=== PATIENT | male | born 1965 | race American Indian/Alaskan Native ===

== ENCOUNTER 2019-09-13 15:03 | Emergency (ER) | payer SELFPAY ==
[2019-09-13 15:43] VITALS: BP 139/83
[2019-09-13] MEDS ORDERED: IBUPROFEN 800 MG TAB PO ONE (16:14)
--- NOTE | 2019-09-13 16:45 | XRay Report ---
LEFT KNEE 4 VIEWS INDICATION / CLINICAL INFORMATION: Left knee pain and swelling for 3 days without known injury. COMPARISON: None available. FINDINGS: BONES / JOINT(S): There is a moderate suprapatellar joint effusion. There are mild degenerative manzo es involving the patellofemoral joint. There is no evidence of fracture, dislocation or destructive l esion. SOFT TISSUES: No significant abnormality. ADDITIONAL FINDINGS: None. IMPRESSION: Moderate suprapatellar joint effusion. Mild osteoarthritis. Signer Name: Davide Rankin MD Signed: 09/13/2019 4:41 PM Workstation Name: [id number]
--- NOTE | 2019-09-13 17:17 | Emergency Department Report ---
ED Fever HPI - General Chief Complaint: Extremity Injury, Lower Stated Complaint: LFT KNEE SWELLING/PAIN Time Seen by Provider: 09/13/19 16:08 - History of Present Illness Initial Comments: Patient is a 54-year-old F [place] male with a past medical history of congestive heart failure and hypertension who is presenting with left knee pain. Pain is been present for approximately a week. He denies any injury. He does note some swelling. Pain is mostly in the lateral left knee with some radiation of the pain down through the calf. Patient denies fevers chills. States is a tight achy sensation is 5 out of 10 in severity. ED Review of Systems ROS: Stated complaint: LFT KNEE SWELLING/PAIN Other details as noted in HPI Comment: All other systems reviewed and negative ED Past Medical Hx - Past Medical History Previous Medical History?: Yes Hx Hypertension: Yes Hx Congestive Heart Failure: Yes - Surgical History Past Surgical History?: No - Social History Smoking Status: Never Smoker Substance Use Type: None - Medications Home Medications: Home Medications Medication Instructions Recorded Confirmed Last Taken Type Ibuprofen [Motrin 800 MG tab] 800 mg PO Q8HR PRN #10 tablet 09/13/19 Unknown Rx ED Physical Exam - General Limitations: No Limitations General appearance: alert, in no apparent distress - Head Head exam: Present: atraumatic, normocephalic - Eye Eye exam: Present: normal appearance - ENT ENT exam: Present: mucous membranes moist - Neck Neck exam: Present: normal inspection - Respiratory Respiratory exam: Present: normal lung sounds bilaterally. Absent: respiratory distress - Cardiovascular Cardiovascular Exam: Present: regular rate, normal rhythm - GI/Abdominal GI/Abdominal exam: Present: soft, normal bowel sounds - Rectal Rectal exam: Present: deferred - Extremities Exam Extremities exam: Present: normal inspection, tenderness, joint swelling (left knee) - Back Exam Back exam: Present: normal inspection - Neurological Exam Neurological exam: Present: alert, oriented X3 - Psychiatric Psychiatric exam: Present: normal affect, normal mood - Skin Skin exam: Present: warm, dry, intact, normal color. Absent: rash ED Course Vital Signs 09/13/19 09/13/19 15:08 16:44 Temperature 98.1 F Pulse Rate 80 Respiratory 18 18 Rate Blood Pressure 139/83 O2 Sat by Pulse 93 Oximetry ED Medical Decision Making - Radiology Data Ordering Physician: LIZETH DIAS MD Date of Service: 09/13/19 Procedure(s): XR knee 3V LT Accession Number(s): [id number] cc: LIZETH DIAS MD Fluoro Time In Minutes: LEFT KNEE 4 VIEWS INDICATION / CLINICAL INFORMATION: Left knee pain and swelling for 3 days without known injury. COMPARISON: None available. FINDINGS: BONES / JOINT(S): There is a moderate suprapatellar joint effusion. There are mild degenerative changes involving the patellofemoral joint. There is no evidence of fracture, dislocation or destructive lesion. SOFT TISSUES: No significant abnormality. ADDITIONAL FINDINGS: None. IMPRESSION: Moderate suprapatellar joint effusion. Mild osteoarthritis. Signer Name: Davide Rankin MD Signed: 09/13/2019 4:41 PM Workstation Name: [id number] - Medical Decision Making Patient appears to have some decreased joint space and effusion present. Likely secondary to arthritis. No occult fractures were seen patient discharged home with chris finley Critical care attestation.: If time is entered above; I have spent that time in minutes in the direct care of this critically ill patient, excluding procedure time. ED Disposition Clinical Impression: Knee effusion, left Osteoarthritis Qualifiers: Osteoarthritis location: knee Osteoarthritis type: primary Laterality: left Qualified Code(s): M17.12 - Unilateral primary osteoarthritis, left knee Disposition: DC-01 TO HOME OR SELFCARE Is pt being admited?: No Does the pt Need Aspirin: No Condition: Stable Instructions: Knee Effusion (ED), Osteoarthritis (ED) Referrals: DAVIDE WHITEHEAD MD [Staff Physician] - 7-10 days Time of Disposition: 17:17
== END 2019-09-13 17:36 | disposition home or self-care (01) ==
LOC: ED 15:03
DX: M25.462 Effusion, left knee (principal); M17.12 Unilateral primary osteoarthritis, left knee; I11.0 Hypertensive heart disease with heart failure; I50.9 Heart failure, unspecified
CPT/HCPCS: 99283